=== PATIENT | male | born 1945 | race Caucasian/White ===

== ENCOUNTER 2019-04-09 09:48 | Emergency (ER) | payer OTHER ==
[~2019-04-09] VITALS: Ht 177.8 cm; Wt 75.3 kg
[~2019-04-09 09:48] MED LIST: ZOCOR40 MG
--- NOTE | 2019-04-09 09:57 | NUR ---
PACIENTE ALERTA,ACTIVO Y ORIENTADO.REFIERE 4 [place] CON DOLOR QUE AUMENTO EL KERRI DE HOY.
[2019-04-09] MEDS ORDERED: PROTONIX40 MG (09:59)
[2019-04-09] MEDS ORDERED: PEPCID AC20 MG (10:01)
--- NOTE | 2019-04-09 10:40 | NUR ---
PACIENTE MASCULINO ALERTA Y ORIENTADO. SE ORIENTA SOBRE EL TRATAMIENTO, REFIERE ENTENDER. SE JI MUESTRAS DE LABORATORIOS SEGHUN ORDENADOS. ORDENES TOMADAS POR RN:LUCIA Y EJECUTADAS POR RNJUAN.
--- NOTE | 2019-04-09 15:05 | NUR ---
SE RECIBE PTE DEL TURNO ANTERIOR, ALERTA Y ORIENTADO X 3 ESFERAS, EN UNIQUE NIVEL MAS BAJO, OROPEZA DE IDENTIFICACION Y BARANDAS ELEVADAS POR PRECAUCION, EN COMPANIA DE FAMILIAR. SE OBSERVA CON BUEN PATRON RESPIRATORIO Y PIEL TIBIA AL TACTO. IV PATENTE Y DERRICK DE EDEMA O ERITEMA CON 0.9% NSS @125ML/HR. PENDIENTE A CONSULTA CON DR BOB.
--- NOTE | 2019-04-09 16:49 | NUR ---
MS Gaby ARAIZA INTENTA COLOCAR KO CON LA ASISTENCIA DE MS Aishwarya MICHELLE, PRESENTA RESISTENCIA. SE NOTIFICA A DR RAMIRES. EN ESPERA DE QD PARA COLOCAR KO.
--- NOTE | 2019-04-09 17:44 | NUR ---
SE COLOCA QUD A PTE UTILIZANDO MEDIDAS ASEPTICAS Y ESTERILES. PTE PTE SE OBSERVA CON ORINA AMARILLO LUDWIN. PTE DRENA 800ML DE PRIMER INSTANTE, SE CLAMPEA KO. SE DESCLAMPEA KO LUEGO DE 15MIN PTE DRENA 1000ML, SE VUELVE A RECLAMPEAR KO.
== END 2019-04-09 18:29 | disposition home or self-care (01) ==
LOC: ER 09:48 → MEDJ 15:48 → SEC-K 16:16 → ER 18:29
DX: N17.9 Acute kidney failure, unspecified (principal); C61 Malignant neoplasm of prostate; C79.89 Secondary malignant neoplasm of other specified sites; R33.8 Other retention of urine; K59.09 Other constipation; N32.89 Other specified disorders of bladder; N13.39 Other hydronephrosis; N28.1 Cyst of kidney, acquired